=== PATIENT | male | born 1960 | race Caucasian/White ===

== ENCOUNTER 2017-09-02 21:20 | Emergency (ER) | payer MEDICAID ==
[~2017-09-02] VITALS: Ht 162.6 cm; Wt 70.0 kg
[2017-09-03] MEDS ORDERED: KETOROLAC 60MG/2ML VIAL IM ONE (00:15)
[2017-09-03 03:51] VITALS: BP 92/50
== END 2017-09-03 03:54 | disposition home or self-care (01) ==
LOC: ER 22:25
DX: S51.812A Laceration without foreign body of left forearm, initial encounter (principal); S09.8XXA Other specified injuries of head, initial encounter; S09.93XA Unspecified injury of face, initial encounter; I10 Essential (primary) hypertension; E78.00 Pure hypercholesterolemia, unspecified; R56.9 Unspecified convulsions; R45.851 Suicidal ideations; X99.1XXA Assault by knife, initial encounter; Y93.89 Activity, other specified; Y92.811 Bus as the place of occurrence of the external cause; Y99.8 Other external cause status
CPT/HCPCS: 70450; 70486; 73060; 96372; 99284; J1885; Z7610